=== PATIENT | female | born 1995 | race African-American/Black ===

== ENCOUNTER 2022-08-03 01:42 | Emergency (ER) | payer OTHER ==
[~2022-08-03] VITALS: Ht 152.4 cm; Wt 52.2 kg
--- NOTE | 2022-08-03 02:12 | NUR ---
Dr. Silvestre at bedside for MSE.
[2022-08-03] MEDS ORDERED: predniSONE 50 MG TABLET ONE (02:21)
--- NOTE | 2022-08-03 02:28 | NUR ---
Patient discharged to home in stable condition. Written and verbal after care instructions given. Patient verbalizes understanding of instructions. Stressed follow up or return to ER for worsening s/s. Patient out of ER with steady gait, no acute signs of distress, VSS, all belongings taken.
[2022-08-03 02:29] VITALS: BP 108/67
[2022-08-03] MEDS ORDERED: predniSONE 50 MG TABLET PO ONE (02:30)
== END 2022-08-03 02:29 | disposition home or self-care (01) ==
LOC: ER 01:42
DX: L23.3 Allergic contact dermatitis due to drugs in contact with skin (principal); J45.909 Unspecified asthma, uncomplicated
CPT/HCPCS: 99283; J7512; A4663